=== PATIENT | male | born 1975 | race Caucasian/White ===

== ENCOUNTER 2017-01-24 20:30 | Emergency (ER) | payer BC ==
[2017-01-24 20:47] VITALS: BP 133/71
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
[2017-01-24] MEDS ORDERED: HYDROcodone/ACETAMIN 5-325 MG* 1 TAB PO ONE (21:13)
[2017-01-24] MEDS ORDERED: Silver Sulfadiazine 1%* 20 GM TOPICAL ONE (21:15)
[2017-01-24] MEDS ORDERED: Cephalexin CAP* 500 MG PO ONE (21:18)
== END 2017-01-24 21:59 | disposition home or self-care (01) ==
LOC: UCCORT 20:30
DX: T23.261A Burn of second degree of back of right hand, initial encounter (principal); T31.0 Burns involving less than 10% of body surface; X08.8XXA Exposure to other specified smoke, fire and flames, initial encounter; Y93.9 Activity, unspecified; Y92.9 Unspecified place or not applicable; E78.5 Hyperlipidemia, unspecified; Z90.49 Acquired absence of other specified parts of digestive tract; Z88.1 Allergy status to other antibiotic agents; Z87.891 Personal history of nicotine dependence
CPT/HCPCS: 16020; 99203; A9270-GY; G0463